=== PATIENT | female | born 1980 | race Two or more races ===

== ENCOUNTER 2018-06-12 06:09 | Day surgery (SDC) | payer OTHER ==
[2018-06-12] MEDS ORDERED: FENTAnyl 50 MCG/ML VIAL IV (08:30)
[2018-06-12] MEDS ORDERED: MIDAZOLAM 1 MG/ML 2 ML INJ IV (08:30)
[2018-06-12] MEDS ORDERED: HYDROmorphONE 1 MG/5 ML IV SYRINGE IV (08:30)
[2018-06-12] MEDS ORDERED: DIPHENHYDRAMINE 50 MG INJ IV (08:30)
[2018-06-12] MEDS ORDERED: LIDOCAINE 2% (SDV) 5 ML INJ (09:10)
[2018-06-12] MEDS ORDERED: ACETAMINOPHEN 1000MG/100ML IV 100 ML (09:10)
[2018-06-12] MEDS ORDERED: PROPOFOL 20 ML (09:10)
[2018-06-12] MEDS ORDERED: ROCURONIUM 50 MG INJ (09:10)
[2018-06-12] MEDS ORDERED: MIDAZOLAM 1 MG/ML 2 ML INJ (09:10)
[2018-06-12] MEDS ORDERED: SUCCINYLCHOLINE CHLORIDE 100 MG/5 ML SYG IV (09:10)
[2018-06-12] MEDS ORDERED: DEXAMETHASONE 4 MG/ML 1 ML INJ (09:11)
[2018-06-12] MEDS ORDERED: ONDANSETRON 4 MG INJ (09:11)
[2018-06-12] MEDS ORDERED: FENTAnyl 50 MCG/ML VIAL (09:11)
[2018-06-12] MEDS ORDERED: SUGAMMADEX SODIUM 200 MG/2 ML VIAL IV ×2 (09:11→10:06)
[2018-06-12] MEDS ORDERED: CEFAZOLIN 1 GM INJ (09:12)
[2018-06-12] MEDS ORDERED: SCOPOLAMINE 1.5 MG PATCH (09:40)
[2018-06-12] MEDS ORDERED: METOCLOPRAMIDE 10 MG INJ (09:43)
[2018-06-12] MEDS: BUPIVACAINE 0.25%/EPI (MDV) 50 ML VIAL INJ (09:46)
[2018-06-12] MEDS ORDERED: KETOROLAC 30 MG INJ (10:11)
[2018-06-12] MEDS ORDERED: morphine 2 MG INJ IV (10:30)
[2018-06-12] MEDS ORDERED: OXYCODONE/ACETAMINOPHEN (5/325) TAB PO ×2 (10:30)
[2018-06-12] MEDS ORDERED: ONDANSETRON 4 MG INJ IV (10:30)
[2018-06-12] MEDS: HYDROmorphONE 1 MG/5 ML IV SYRINGE IV ×2 (10:54→11:06)
[2018-06-12] MEDS: FENTAnyl 50 MCG/ML VIAL IV ×2 (10:55→11:07)
[2018-06-12] MEDS ORDERED: LABETALOL HCL 20MG INJ IV (11:00)
[2018-06-12] MEDS: MEPERIDINE 25 MG INJ IV (11:14)
[2018-06-12] MEDS: ONDANSETRON 4 MG INJ IV (11:14)
== END 2018-06-12 13:41 | disposition home or self-care (01) ==
LOC: SDS 06:09
DX: K80.10 Calculus of gallbladder with chronic cholecystitis without obstruction (principal)
CPT/HCPCS: 47562; 84703; 88304